=== PATIENT | female | born 1990 | race Caucasian/White ===

== ENCOUNTER 2021-07-26 11:17 | Outpatient (CLI) | payer OTHER, SELFPAY ==
[2021-07-26 12:31] LABS: SARS-CoV-2 Ag Positive (Negative)
== END 2021-07-26 11:18 | disposition home or self-care (01) ==
LOC: CHSLAB 11:20
PROVIDERS: PCP Family Medicine; Visit Provider Nurse Practitioner Psychiatric/Mental Health
DX: U07.1 COVID-19 (principal)
CPT/HCPCS: 87426; C9803

== ENCOUNTER 2024-01-05 14:07 | Emergency (ER) | payer OTHER, SELFPAY ==
--- NOTE | ~2024-01-05 | XR_ITS ---
EXAMINATION: XR chest 2V DATE: 01/05/2024 15:15 INDICATION: Cough. Chest pain. TECHNIQUE: Frontal and lateral views of the chest were obtained. COMPARISON: None. FINDINGS: There is no pneumonia, pleural effusion, or pneumothorax. The heart size is normal. There a re changes of anterior fusion procedure in cervical spine. IMPRESSION: 1. No acute cardiopulmonary disease. Reviewed, dictated and finalized at location A.
[2024-01-05 14:14] VITALS: BP 143/72; PULSE 97; RESP 16; TEMP 36.9; O2SAT 99
--- NOTE | 2024-01-05 14:42 | ED.URI ---
HPI - URI/Sore Throat General Chief Complaint: Upper Respiratory Infection <Madison Collins PA-C - Last Filed: 01/05/24 18:01> Stated Complaint: URI, 7 months preg, coughing <Madison Collins PA-C - Last Filed: 01/05/24 18:01> Time Seen by Provider: 01/05/24 14:32 <Madison Collins PA-C - Last Filed: 01/05/24 18:01> History of Present Illness HPI Narrative: 33-year-old female who is currently 7 months presents to the emergency department for bilateral rib pain and URI symptoms for 5 days. She is reporting cough, congestion, sore throat and headache. Patient was evaluated at her PCPs office yesterday and had a negative strep test. States she was diagnosed with a URI and prescribed amoxicillin. States she has been taking his medications, however presents today because she had a coughing fit last night and now is presenting with bilateral rib pain that only occurs when she coughs. Does not occur while at rest. She states she is concerned she broke a rib. She is very tearful and anxious appearing. She is reporting some shortness of breath she contributes to nasal congestion, denies chest pain. No hemoptysis or history of VTE. Denies fevers. States this has been uncomplicated. Her OBGYN is Dr. Kelly. <Madison Collins PA-C - Last Filed: 01/05/24 18:01> Related Data Allergies/Adverse Reactions: Allergies Allergy/AdvReac Type Severity Reaction Status Date / Time No Known Allergies Allergy Verified 01/05/24 14:27 <SARI Morrison Last Filed: 01/05/24 18:01> Review of Systems Review of Systems: CONSTITUTIONAL: Denies fever, chills, or sweats. EYES: Denies visual changes, redness, or discharge. ENT: Denies rhinorrhea, congestion, sore throat, or otalgia. CARDIOVASCULAR: Denies chest pain, palpitations, or edema. RESPIRATORY: See HPI GASTROINTESTINAL: Denies abdominal pain, nausea, vomiting, or diarrhea. GENITOURINARY: Denies dysuria or hematuria. SKIN: Denies rash or itching. MUSCULOSKELETAL: Denies back pain, joint pain, or myalgia. NEUROLOGIC: Denies headache, numbness, or weakness. PSYCHIATRIC: Denies anxiety or depression. <Madison Collins PA-C - Last Filed: 01/05/24 18:01> Exam Narrative: GENERAL: Well-appearing, well-nourished, and in no acute distress. HEAD: Normocephalic, atraumatic. EYES: PERRLA and EOMI. ENT: Nares clear, no rhinorrhea or epistaxis. Mucous membranes moist. NECK: Supple. CHEST: Clear to auscultation. No respiratory distress. Tenderness to bilateral anterior lateral inferior ribs without crepitus, step-offs or deformities. HEART: Regular rate and rhythm. No murmur heard. Normal peripheral pulses. ABDOMEN: Soft, nontender, nondistended, normal active bowel sounds. EXTREMITIES: Normal range of motion. No edema. Negative Homans bilaterally. SKIN: Warm, dry, no rash. NEURO: No focal deficits. Alert and oriented x3 PSYCH: Very anxious and tearful on exam <Madison Collins PA-C - Last Filed: 01/05/24 18:01> Course MAINTENANCE INSTRUCTOR/PA Physician Supervision I agree with midlevel documentation; I performed the medical decision making component of this evaluation. <Veronica Bynum MD - Last Filed: 01/05/24 17:45> Vital Signs Vital signs: Vital Signs Temperature 98.4 F 01/05/24 14:14 Pulse Rate 97 01/05/24 14:14 Respiratory Rate 16 01/05/24 14:14 Blood Pressure 143/72 H 01/05/24 14:14 Pulse Oximetry 99 01/05/24 14:14 Temperature 98.4 F 01/05/24 14:14 Pulse Rate 88 01/05/24 16:22 Respiratory Rate 18 01/05/24 16:22 Blood Pressure 123/74 01/05/24 16:22 Pulse Oximetry 98 01/05/24 16:22 <Madison Collins PA-C - Last Filed: 01/05/24 18:01> Vital Signs Temperature 98.4 F 01/05/24 14:14 Pulse Rate 97 01/05/24 14:14 Respiratory Rate 16 01/05/24 14:14 Blood Pressure 143/72 H 01/05/24 14:14 Pulse Oximetry 99 01/05/24 14:14 Temperature 98.4 F 01/05/24 1
[2024-01-05] MEDS: ACETAMINOPHEN 500 MG TABLET 1000 MG PO (15:27)
[2024-01-05 15:36] LABS: Basophils Percent Auto 0.2 % (0.2-1.2); Eosinophils Percent Auto 0.2 % (0-4.4); Hematocrit 37.9 % (37.0-47.0); Hemoglobin 12.4 g/dL (12.0-15.0); Immature Granulocyte Absolute 0.08 K/mm3 (0.00-0.031); Immature Granulocyte Percent A 0.8 % (0-0.5); Lymphocytes Percent Auto 8.4 % (18.3-44.2); Mean Corpuscular HGB Conc 32.7 g/dl (32-36); Mean Corpuscular Hemoglobin 30.9 pg (26-34); Mean Corpuscular Volume 94.5 fl (80-100); Mean Platelet Volume 10.4 fl (7.4-10.4); Monocytes Absolute Auto 0.8 K/mm3 (0.1-0.6); Monocytes Percent Auto 8.7 % (2.6-8.5); Neutrophils Absolute Auto 7.7 K/mm3 (1.3-6.7); Neutrophils Percent Auto 81.7 % (45.5-73.1); Platelet Count Result 228 k/mm3 (150-375); Red Blood Count 4.01 M/mm3 (4.2-5.4); Red Cell Distribution Width 14.3 % (11.5-14.5); White Blood Count 9.5 K/mm3 (4.5-10.0)
[2024-01-05 15:47] LABS: Alanine Aminotransferase 18 U/L (6-35); Albumin Level 3.9 g/dL (3.5-5.1); Alkaline Phosphatase 114 U/L (38-126); Anion Gap 7 mmol/L (4-12); Aspartate Amino Transferase 21 U/L (14-36); Bilirubin,Total 0.5 mg/dL (0.2-1.3); Blood Urea Nitrogen 8 mg/dL (7-17); Calcium 8.8 mg/dL (8.4-10.2); Carbon Dioxide 19 mmol/L (22-30); Chloride 108 mmol/L (98-107); Estimated CRCL calculation 162 ml/min; Estimated Glomerular Filt Rate > 60; Glucose 91 mg/dL (65-110); Magnesium 1.8 mg/dL (1.6-2.3); Potassium 3.6 mmol/L (3.4-5.0); Sodium 134 mmol/L (137-145)
[2024-01-05 16:10] LABS: Appearance Urine Clear (Clear); Bacteria Urine None Seen /hpf; Bilirubin Urine Negative (Negative); Blood Urine 1+ (Negative); Color Urine Yellow (Yellow); Glucose Urine UA Negative (Negative); Ketones Urine Negative (Negative); Leukocyte Esterase Ur 2+ LEU/UL (Negative); Nitrate Urine Negative (Negative); Non Pathogenic Casts 0-2; Protein Urine Negative (Negative); Squamous Epithelial Cell Urine Few /hpf (Few); Urobilinogen Urine 0.2 mg/dL (<2.0)
[2024-01-05 16:12] LABS: Influenza A QL RT-PCR Negative (Negative); Influenza B QL RT-PCR Negative (Negative); SARS-CoV-2 RNA PCR Negative (Negative)
[2024-01-05 16:12] LABS: Add Urine Microscopic? YES
[2024-01-05 16:22] VITALS: BP 123/74; PULSE 88; RESP 18; O2SAT 98
[2024-01-05] MEDS: CEPHALEXIN 500 MG CAPSULE PO (17:01)
== END 2024-01-05 17:05 | disposition home or self-care (01) ==
PROVIDERS: Emergency Provider Physician Assistant; PCP Family Medicine
DX: O99.519 Diseases of the respiratory system complicating pregnancy, unspecified trimester (principal); O23.10 Infections of bladder in pregnancy, unspecified trimester; N30.01 Acute cystitis with hematuria; O9A.219 Injury, poisoning and certain other consequences of external causes complicating pregnancy, unspecified trimester; S23.41XA Sprain of ribs, initial encounter; Z3A.00 Weeks of gestation of pregnancy not specified; Z20.822 Contact with and (suspected) exposure to COVID-19; X50.9XXA Other and unspecified overexertion or strenuous movements or postures, initial encounter
CPT/HCPCS: 36415; 71046; 80053; 81001; 83735; 85025; 87077; 87086; 87088; 87186; 87636; 99283; A9270

== ENCOUNTER 2024-02-10 10:01 | Observation (INO) | payer OTHER, SELFPAY ==
[2024-02-10] VITALS (21 sets, daily range): BP systolic 115–134; BP diastolic 53–72; PULSE 74–92; O2SAT 95–100; BMI 50.1
--- NOTE | 2024-02-10 10:12 | ECG_ITS ---
Test Date: 2024-02-10 10:39:10 Measurements Intervals [place] Rate: 85 P: 10 AL: 133 QRS: 40 QRSD: 81 T: 14 QT: 342 QTc: 407 Interpretive Statements SINUS RHYTHM No previous ECG available for comparison Electronically Signed On 02-10-2024 11:56:14 CDT by Heather Hector M.D.
[2024-02-10] MEDS: DEXTROSE 5%/LACTATED RINGERS 1,000 ML 999 ML IV CONT (10:57)
--- NOTE | 2024-02-10 11:10 | OBADM ---
This patient, Kenzie Chang, admitted to the OB room 116 at 1001 for observation after being seen in Dr. Bryant Hua's office where pt's BP was low . Patient/family oriented to hospital policies and general routines including ID bracelet, bed and alarms, visiting hours, pain management, procedures, bathroom and other care routines, personal items, smoking policy, room service/diet, and visiting hours. Patient/Family are encouraged to report perceived risks to care and to ask questions if they do not understand what they are told or what they should do.
[2024-02-10 11:11] LABS: Basophils Percent Auto 0.1 % (0.2-1.2); Eosinophils Percent Auto 0.1 % (0-4.4); Hematocrit 35.2 % (37.0-47.0); Hemoglobin 11.9 g/dL (12.0-15.0); Immature Granulocyte Absolute 0.06 K/mm3 (0.00-0.031); Immature Granulocyte Percent A 0.6 % (0-0.5); Lymphocytes Absolute Auto 1.14 K/mm3 (0.9-3.2); Lymphocytes Percent Auto 11.3 % (18.3-44.2); Mean Corpuscular HGB Conc 33.8 g/dl (32-36); Mean Corpuscular Hemoglobin 30.8 pg (26-34); Mean Corpuscular Volume 91.2 fl (80-100); Mean Platelet Volume 10.5 fl (7.4-10.4); Monocytes Absolute Auto 0.7 K/mm3 (0.1-0.6); Monocytes Percent Auto 6.7 % (2.6-8.5); Neutrophils Absolute Auto 8.2 K/mm3 (1.3-6.7); Neutrophils Percent Auto 81.2 % (45.5-73.1); Platelet Count Result 227 k/mm3 (150-375); Red Blood Count 3.86 M/mm3 (4.2-5.4); Red Cell Distribution Width 14.2 % (11.5-14.5); White Blood Count 10.1 K/mm3 (4.5-10.0)
[2024-02-10 11:23] LABS: Alanine Aminotransferase 13 U/L (6-35); Albumin Level 3.6 g/dL (3.5-5.1); Alkaline Phosphatase 128 U/L (38-126); Anion Gap 6 mmol/L (4-12); Aspartate Amino Transferase 15 U/L (14-36); Bilirubin,Total 0.4 mg/dL (0.2-1.3); Blood Urea Nitrogen 9 mg/dL (7-17); Calcium 9.1 mg/dL (8.4-10.2); Carbon Dioxide 20 mmol/L (22-30); Chloride 110 mmol/L (98-107); Estimated CRCL calculation 207 ml/min; Estimated Glomerular Filt Rate > 60; Glucose 83 mg/dL (65-110); Sodium 136 mmol/L (137-145)
--- NOTE | 2024-02-10 11:31 | PC.NURSE ---
Dr. Bryant Hua returned page and informed of reactive NST, BP's, maternal pulse 80's to low 90's and regular, pt no longer feeling the palpitations or lightheadedness, EKG was normal, O2 sats are 96-98%, CBC and CMP results. Pt has had 1/2 of the bag of IV fluids. Order for discharge received.
--- NOTE | 2024-02-11 16:29 | P.PNOB_ITS ---
OB - Triage/Final Diagnosis Visit Information Date of evaluation: 02/11/24 Reason for evaluation: threatened labor Comments/Additional reasons for admission: I have assessed the risk for this patient, Kenzie Hossein Chang, and determined that she would benefit from observation care. Evaluation Laboratory results: Laboratory Tests 02/10/24 10:51 WBC 10.1 H RBC 3.86 L Hgb 11.9 L Hct 35.2 L MCV 91.2 MCH 30.8 MCHC 33.8 RDW 14.2 Plt Count 227 MPV 10.5 H Immature Gran % (Auto) 0.6 H Neut % (Auto) 81.2 H Lymph % (Auto) 11.3 L [place] % (Auto) 6.7 Eos % (Auto) 0.1 Baso % (Auto) 0.1 L Lymph # (Auto) 1.14 [place] # (Auto) 0.7 H Eos # (Auto) 0.0 Baso # (Auto) 0.0 Abs Immat Gran (auto) 0.06 H Absolute Neuts (auto) 8.2 H Absolute Nucleated RBC 0.000 Nucleated RBC % 0.0 Sodium 136 L Potassium 4.0 Chloride 110 H Carbon Dioxide 20 L Anion Gap 6 BUN 9 Creatinine 0.50 L Estim Creat Clear Calc 207 Estimated GFR > 60 Glucose 83 Calcium 9.1 Total Bilirubin 0.4 AST 15 ALT 13 Alkaline Phosphatase 128 H Total Protein 7.0 Albumin 3.6
== END 2024-02-10 12:14 | disposition home or self-care (01) ==
PROVIDERS: Admitting Provider Obstetrics & Gynecology; PCP Family Medicine; Visit Provider Obstetrics & Gynecology
DX: O47.1 False labor at or after 37 completed weeks of gestation (principal); Z3A.37 37 weeks gestation of pregnancy
CPT/HCPCS: 36415; 59025; 80053; 85025; 93005; 96360; G0378; G0379; J7121

== ENCOUNTER 2024-02-16 15:03 | Observation (INO) | payer OTHER, SELFPAY ==
[2024-02-16] VITALS (16 sets, daily range): BP systolic 126–134; BP diastolic 63–68; PULSE 78–96; O2SAT 96–99; BMI 48.6
--- NOTE | 2024-02-16 15:23 | OBADM ---
This patient, Kenzie Chang, admitted to the OB room OB Post 117 for observation. Patient/family oriented to hospital policies and general routines including ID bracelet, bed and alarms, visiting hours, pain management, procedures, bathroom and other care routines, personal items, smoking policy, room service/diet, and visiting hours. Patient/Family are encouraged to report perceived risks to care and to ask questions if they do not understand what they are told or what they should do.
[2024-02-16 15:39] LABS: Appearance Urine Cloudy (Clear); Bacteria Urine 3+ /hpf; Bilirubin Urine Negative (Negative); Blood Urine 1+ (Negative); Color Urine Yellow (Yellow); Glucose Urine UA Negative (Negative); Ketones Urine Negative (Negative); Leukocyte Esterase Ur 2+ LEU/UL (Negative); Nitrate Urine Negative (Negative); Non Pathogenic Casts 0-2; Protein Urine Negative (Negative); Specific Grav Ur 1.024 (1.001-1.035); Squamous Epithelial Cell Urine Few /hpf (Few); Urobilinogen Urine 0.2 mg/dL (<2.0); WBC Urine 21-50 /hpf (0-3); pH Urine 6.5 (5.0-9.0)
[2024-02-16 15:48] LABS: Add Urine Microscopic? YES
--- NOTE | 2024-02-16 16:11 | PM.OBTRLD ---
OB - Triage/Final Diagnosis Visit Information Date of evaluation: 02/16/24 Reason for evaluation: decreased movement Comments/Additional reasons for admission: I have assessed the risk for this patient, Kenzie Chang, and determined that she would benefit from observation care. Evaluation Laboratory results: Laboratory Tests 02/16/24 15:15 Urine Color Yellow Urine Appearance Cloudy H Urine pH 6.5 Ur Specific [place] 1.024 Urine Protein Negative Urine Glucose (UA) Negative Urine Ketones Negative Ur Blood (Man) 1+ H Urine Nitrate Negative Urine Bilirubin Negative Urine Urobilinogen 0.2 Leukocyte Esterase Rfl 2+ H Urine RBC 6-10 H Urine WBC 21-50 H Ur Squamous Epith Cells Few Urine Bacteria 3+ H Urine Casts 0-2 Vital signs: Vital Signs - 24 hr 02/16/24 15:22 02/16/24 15:19 02/16/24 15:24 Pulse Rate Blood Pressure Pulse Oximetry 96 99 Oxygen Delivery Room Air 02/16/24 15:29 02/16/24 15:34 02/16/24 15:39 Pulse Rate Blood Pressure Pulse Oximetry 98 98 99 Oxygen Delivery 02/16/24 15:40 02/16/24 15:44 02/16/24 15:46 Pulse Rate 83 82 Blood Pressure 133/64 126/63 Pulse Oximetry 99 Oxygen Delivery 02/16/24 15:49 02/16/24 15:54 02/16/24 15:59 Pulse Rate Blood Pressure Pulse Oximetry 99 99 98 Oxygen Delivery 02/16/24 16:01 02/16/24 16:04 02/16/24 16:09 Pulse Rate 85 Blood Pressure 134/68 Pulse Oximetry 98 97 Oxygen Delivery
== END 2024-02-16 16:20 ==
PROVIDERS: Admitting Provider Obstetrics & Gynecology; PCP Family Medicine; Visit Provider Obstetrics & Gynecology
DX: O36.8130 Decreased fetal movements, third trimester, not applicable or unspecified (principal); Z3A.38 38 weeks gestation of pregnancy
CPT/HCPCS: 59025; 81001; 87086; 87088; G0378; G0379

== ENCOUNTER 2024-02-20 09:09 | Outpatient (CLI) | payer OTHER, SELFPAY ==
[2024-02-20 09:40] LABS: Hematocrit 37.6 % (37.0-47.0); Hemoglobin 12.4 g/dL (12.0-15.0); Mean Corpuscular Hemoglobin 30.7 pg (26-34); Mean Corpuscular Volume 93.1 fl (80-100); Mean Platelet Volume 10.5 fl (7.4-10.4); Platelet Count Result 205 k/mm3 (150-375); Red Blood Count 4.04 M/mm3 (4.2-5.4); Red Cell Distribution Width 14.4 % (11.5-14.5); White Blood Count 9.9 K/mm3 (4.5-10.0)
[2024-02-22 19:09] LABS: Rapid Plasma Reagin Non-Reactive (NonReactive)
== END 2024-02-20 09:10 | disposition home or self-care (01) ==
PROVIDERS: PCP Family Medicine; Visit Provider Obstetrics & Gynecology
DX: Z01.818 Encounter for other preprocedural examination (principal)
CPT/HCPCS: 36415; 85027; 86592; 86850; 86900; 86901

== ENCOUNTER 2024-02-22 09:48 | Inpatient (IN) | payer OTHER, SELFPAY ==
--- NOTE | 2024-02-16 12:48 | P.HP_ITS ---
H&P: HPI History of Present Illness Date/Time: 02/16/24 12:48 Chief Complaint: term with previous section Narrative: 33 year female admitted at 39 weeks gestation repeat section. She has an unfavorable cervix previous section failure to progress risks and benefits repeat full COUNTS INCLUDE 234 BEDS AT THE [facility] Family History Family History Father Diabetes mellitus Mother Diabetes mellitus CHF (congestive heart failure) Grandparent Hypertension Social History Social History Substance use: never Spiritual care concerns: No Meds Home Medications and Allergies Home Medications Medication Instructions Recorded Confirmed Type prenat.vits,julio,[id number] 1 tablet PO HS 02/01/24 02/10/24 History calcium carbonate (Tums) 600 mg PO HS 02/10/24 02/10/24 History Allergies Allergy/AdvReac Type Severity Reaction Status Date / Time No Known Allergies Allergy Verified 01/05/24 14:27 Exam Const: General: cooperative, healthy appearing and comfortable Nutritional Appearance: obese Orientation/consciousness: oriented to person, oriented to place and oriented to time HENMT: Head: normal to inspection Resp: Effort & Inspection: normal respiratory effort Cardio: Rate: regular rate Rhythm: regular rhythm Heart sounds: S1 normal heart sound present and S2 normal heart sound present GI: Inspection: normal to inspection and obesity Assessment and Plan Assessment and plan (1) Term : Code(s): Z34.90 - Encounter for supervision of normal , unspecified, unspecified trimester Status: Acute (2) Previous section: Code(s): Z98.891 - History of uterine scar from previous surgery Status: Acute Assessment and Plan: proceed with repeat low-transverse section
[2024-02-22] VITALS (62 sets, daily range): BP systolic 88–139; BP diastolic 40–66; PULSE 49–83; RESP 16–20; TEMP 36.3–36.9; O2SAT 97–100; BMI 50.3
--- NOTE | 2024-02-22 06:36 | WPDHPUPDATE1 ---
History and Physical Update Update Date/Time: 02/22/24 06:36 History and Physical has been reviewed, including an updated exam of the patient. There are NO changes in the patient's condition. Risks, benefits, and alternatives have been discussed and questions answered. Patient agrees to proceed with procedure.
[2024-02-22] MEDS: ACETAMINOPHEN 500 MG TABLET 1000 MG PO (10:09)
[2024-02-22] MEDS: LACTATED RINGERS 1,000 ML 999 ML IV CONT ×2 (10:25→11:10)
--- NOTE | 2024-02-22 10:40 | LDADM ---
This patient, Kenzie Chang, was admitted to Labor/Delivery/Recovery 120 on 02/22/24 at 09:48. Plans for labor, pain management and were discussed with patient. Patient/family oriented to hospital policies and general routines including ID bracelet, bed and alarms, visiting hours, pain management, procedures, bathroom and other care routines, personal items, smoking policy, room service/diet and guest tray routines, security routines, and visiting hours. Patient/Family are encouraged to report perceived risks to care and to ask questions if they do not understand what they are told or what they should do. See OBIX for further documentation.
[2024-02-22] MEDS: ONDANSETRON INJ 4 MG/2 ML VIAL IV PUSH ×2 (10:55→16:28)
[2024-02-22] MEDS: FAMOTIDINE 20 MG/2 ML VIAL IV PUSH (10:56)
[2024-02-22 11:16] LABS: HIV 1/2 Ab P24 Ag Result Negative (Negative)
[2024-02-22] MEDS: ceFAZolin 3 GM/D5W 100 ML 100 ML IVPB (11:25)
--- NOTE | 2024-02-22 12:10 | W.PM.OBCSD ---
OB - Delivery Note Procedure Delivery date: 02/22/24 Pre-op diagnosis: Other (Previous section) Post-op Diagnosis: Same Induction method: None Delivery monitor: External FHT Procedure Performed: Repeat Surgeon: Hubert Hua MD Anesthesia type: Spinal Description of Procedure/Findings: the patient was prepped draped in the sterile fashion placed in the supine position. Under excellent spinal anesthetic the abdomen was entered in Pfannenstiel fashion progressive layers of fascia. Fascia incised midline carried in upward outward fashion bilaterally. Underlying muscles sharply dissected. Parietal peritoneum [place] by Roxy clamps and by sharp 2nd dissection. This was carried superiorly and inferiorly to the dome of the bladder. Bladder blade was placed and a bladder flap formed. Bladder blade returned. A low transverse incision made in the head delivered in the DONNA position. Anterior posterior shoulder delivered spontaneously. Cord clamped x2 and cut. Infant passed off the table with an excellent cry. Placenta delivered intact manually. Uterus delivered on the abdomen wrapped in a moist towel. After inspecting the uterine lining to be clear of debris, the uterus was closed in continuous running locking 0 Vicryl from lateral edge to lateral edge. This was followed by 2nd imbricating running locking 0 Vicryl from lateral edge to lateral edge. Hemostasis was assured. The uterus returned to the abdomen after inspecting the ovaries and tubes to be within normal limits. The uterine incision inspected 1 last time. The noted be hemostatic. The laps removed and accounted for. The fascia closed with continuous running 0 Vicryl from lateral edge to lateral edge. Irrigation undertaken to clear and the subcutaneous layer closed with 4-0 Monocryl and glue. QBL was 220. All sponge, needle, instrument counts were correct. There were no immediate complications noted mom and baby doing fine at the time of this dictation Estimated Blood Loss: 220 Drains: No Packing: No Pathology: None sent Complications: No immediate complications Condition: Stable Disposition: PACU [place] Baby Date of : 02/22/24 Time of : 11:51 Weeks of gestation at delivery: 39 gender: Male Weight (pounds): 9 Weight (ounces): 2 presentation: vertex position: Right Occiput Anterior Placenta delivery description: Manual Removal Cord Vessel Description: 3 Vessels score one minute: 8 score five minutes: 9
--- NOTE | 2024-02-22 12:13 | P.DS_ITS ---
DS: Admitting Diagnosis Discharge Date 02/24/2024 Admitting Diagnosis term /previous section DS: Discharge Diagnosis Discharge Diagnosis (1) Previous section: Code(s): Z98.891 - History of uterine scar from previous surgery Status: Acute (2) Term : Code(s): Z34.90 - Encounter for supervision of normal , unspecified, unspecified trimester Status: Acute DS: Summary Hospital Course Reason for hospitalization: patient was admitted for repeat section 02/22/2024. Hospital Course: The patient's hospital course unremarkable. She remained afebrile. She was up, voiding without difficulty, eating regular diet, ambulating, and generally without complaints. Time Spent with Patient Time attestation: Total time spent providing and/or coordinating discharge services: Exam Const: General: cooperative, healthy appearing and comfortable Orientation/consciousness: oriented to person, oriented to place and oriented to time HENMT: Head: normal to inspection Resp: Effort & Inspection: normal respiratory effort Cardio: Rate: regular rate Rhythm: regular rhythm Heart sounds: S1 normal heart sound present and S2 normal heart sound present GI: Inspection: normal to inspection and incision ( Wounds clean dry and intact) DS: Data Data Completed and Pending Labs on day of discharge: Labs from last 24 hours 02/22/24 10:18 HIV 1&2 Ab/P24 Ag 4thGn Negative Discharge Plan Discharge Attending physician on discharge: Hubert Villanueva Discharging Clinician: Hubert Villanueva Patient Disposition: Home, Self-Care Activity: may shower, no straining, may drive after 2 weeks and pelvic rest Diet: heart healthy Wound Care Instructions: follow printed instructions Patient Instructions: Antibiotic Form Stand Alone Forms: General Discharge Information Follow-up/Referrals: Hubert Villanueva MD [Physician] - Discharge Medications: New hydrocodone-acetaminophen 5-325 mg tablet 1 tablet PO Q4H PRN (Reason: pain) Qty: 30 0RF Continued prenat.vits,julio,brd-[id number]-tknws Tablet 1 tablet PO HS cephalexin 500 mg Capsule 500 mg PO Q12H Qty: 10 0RF Tums 300 mg (750 mg) Tablet,Chewable 600 mg PO HS Date of admission: 02/22/24 09:48 Primary Care Provider: YassineAlbert Admitting Provider: Dalla [place],Hubert J. Attending physician on admission: Hubert Villanueva Condition: Stable
[2024-02-22] MEDS: OXYTOCIN 30 UNITS/NS 500 ML 30 UNITS/500 ML BAG 125 UNITS IV CONT (12:25)
[2024-02-22] MEDS: LIDOCAINE 5% PATCH 1 PATCH TRANSDERM (12:56)
--- NOTE | 2024-02-22 14:35 | PC.NURSE ---
Patient transferred to post room #282 via stretcher. Support person present. Oriented to unit, room, information board, rooming in, admission packet and security measures. Patient verbalizes understanding.
[2024-02-22] MEDS: DEXTROSE 5%/0.45% SOD CHL 1,000 ML 125 ML IV CONT (16:26)
[2024-02-22] MEDS: KETOROLAC 15 MG/ML VIAL (*BKC) IV PUSH ×2 (16:27→22:30)
[2024-02-22] MEDS: ACETAMINOPHEN 325 MG TABLET 650 MG PO ×2 (16:28→22:30)
[2024-02-22] MEDS: SIMETHICONE 80 MG TAB.CHEW PO (16:28)
[2024-02-23 04:15] VITALS: BP 102/51; PULSE 81; RESP 18; TEMP 36.4; O2SAT 99
[2024-02-23] MEDS: ACETAMINOPHEN 325 MG TABLET 650 MG PO ×4 (04:16→22:40)
[2024-02-23] MEDS: KETOROLAC 15 MG/ML VIAL (*BKC) IV PUSH ×2 (04:17→10:21)
[2024-02-23 04:50] LABS: Eosinophils Percent Auto 0.4 % (0-4.4); Hematocrit 32.3 % (37.0-47.0); Hemoglobin 10.6 g/dL (12.0-15.0); Immature Granulocyte Absolute 0.09 K/mm3 (0.00-0.031); Immature Granulocyte Percent A 0.8 % (0-0.5); Lymphocytes Absolute Auto 1.39 K/mm3 (0.9-3.2); Lymphocytes Percent Auto 12.6 % (18.3-44.2); Mean Corpuscular HGB Conc 32.8 g/dl (32-36); Mean Corpuscular Hemoglobin 31.3 pg (26-34); Mean Corpuscular Volume 95.3 fl (80-100); Mean Platelet Volume 10.8 fl (7.4-10.4); Monocytes Absolute Auto 0.6 K/mm3 (0.1-0.6); Monocytes Percent Auto 5.2 % (2.6-8.5); Platelet Count Result 180 k/mm3 (150-375); Red Blood Count 3.39 M/mm3 (4.2-5.4); Red Cell Distribution Width 14.5 % (11.5-14.5); White Blood Count 11.1 K/mm3 (4.5-10.0)
--- NOTE | 2024-02-23 07:13 | P.PNOB_ITS ---
OB - PN: Subj Subjective Date/time seen: 02/23/24 07:13 Patient comments: no complaints and pain well controlled baby status: doing well and nursing well OB - PN: Obj Data Labs 02/23/24 04:04 Labs: Laboratory Results - last 24 hr 02/22/24 02/23/24 10:18 04:04 WBC 11.1 H RBC 3.39 L Hgb 10.6 L Hct 32.3 L MCV 95.3 MCH 31.3 MCHC 32.8 RDW 14.5 Plt Count 180 MPV 10.8 H Immature Gran % (Auto) 0.8 H Neut % (Auto) 81.0 H Lymph % (Auto) 12.6 L [place] % (Auto) 5.2 Eos % (Auto) 0.4 Baso % (Auto) 0.0 L Lymph # (Auto) 1.39 [place] # (Auto) 0.6 Eos # (Auto) 0.0 Baso # (Auto) 0.0 Abs Immat Gran (auto) 0.09 H Absolute Neuts (auto) 9.0 H Absolute Nucleated RBC 0.000 Nucleated RBC % 0.0 HIV 1&2 Ab/P24 Ag 4thGn Negative OB - PN A/P Plan day: 1 Plan: routine care Comments: will circ baby when peds sees baby Time Spent With Patient Time: Total time spent is greater than 50% in coordination of care (as documented) at patient's floor/unit and/or counseling patient: Time with patient: less than 15 minutes Exam Const: General: cooperative, healthy appearing and comfortable Orientation/consciousness: oriented to person, oriented to place and oriented to time Resp: Effort & Inspection: normal respiratory effort Cardio: Rate: regular rate Rhythm: regular rhythm Heart sounds: S1 normal heart sound present and S2 normal heart sound present GI: Inspection: normal to inspection and incision (cdi)
[2024-02-23 08:15] VITALS: BP 111/58; PULSE 78; RESP 20; TEMP 36.4; O2SAT 98
--- NOTE | 2024-02-23 09:31 | WPDANLDPN2 ---
Anes-Prog Note L&D Date/Time: 02/23/24 09:31 Comfortable throughout: section Neuraxial method: spinal Epidural/Spinal procedure site: clean & non-tender Neuro status: Neuro function grossly intact. Cardiovascular status: normal Respiratory status: normal Airway patency: baseline Mental status: baseline Post-Op hydration status: normal Vital Signs: Last Vital Signs Temp 36.4 C L 02/23/24 04:15 Pulse 81 02/23/24 04:15 Resp 18 02/23/24 04:15 BP 102/51 L 02/23/24 04:15 Pulse Ox 99 02/23/24 04:15 O2 Del Method Room Air 02/23/24 04:15 Pain score (VAS): 2/10 I/O: Intake & Output 02/22/24 02/23/24 02/23/24 23:59 07:59 15:59 Intake Total 500 1600 Output Total 100 350 Balance 400 1250 Post-procedural complaints: none Patient feedback: Patient satisfied with anesthetic care.
--- NOTE | 2024-02-23 09:31 | WPDANLDNPN2 ---
Anes-Prog Note L&D-Neuraxial Date/Time: 02/23/24 09:31 Neuraxial medications: intrathecal PF morphine Opiod-related complaints: pruritis mild, no treatment Patient feedback: Patient satisfied with post-operative pain management.
[2024-02-23] MEDS: SIMETHICONE 80 MG TAB.CHEW PO ×2 (10:19→15:15)
[2024-02-23] MEDS: DOCUSATE SODIUM 100 MG CAPSULE PO ×2 (10:20→16:16)
[2024-02-23] MEDS: MULTIVIT/MIN/PREN/FOL AC/IRON TABLET 1 TAB PO (10:20)
[2024-02-23] MEDS: LIDOCAINE 5% PATCH 1 PATCH TRANSDERM (15:15)
[2024-02-23] MEDS: IBUPROFEN 600 MG TABLET PO ×2 (16:16→22:40)
[2024-02-23 20:10] VITALS: BP 130/83; PULSE 79; RESP 18; TEMP 36.6
[2024-02-24] MEDS: ACETAMINOPHEN 325 MG TABLET 650 MG PO ×2 (04:27→11:53)
[2024-02-24] MEDS: IBUPROFEN 600 MG TABLET PO ×2 (04:27→11:53)
--- NOTE | 2024-02-24 06:51 | PM.OBPNVD ---
OB - PN: Subj Subjective Date/time seen: 02/24/24 06:51 Patient comments: no complaints and pain well controlled baby status: doing well OB - PN: Obj Data Labs 02/23/24 04:04 OB - PN A/P Plan day: 2 Plan: routine care, discharge home and follow up 6 weeks (4 weeks) Time Spent With Patient Time: Total time spent is greater than 50% in coordination of care (as documented) at patient's floor/unit and/or counseling patient: Time with patient: less than 15 minutes Exam Const: General: cooperative, healthy appearing and comfortable Orientation/consciousness: oriented to person, oriented to place and oriented to time HENMT: Head: normal to inspection Resp: Effort & Inspection: normal respiratory effort Cardio: Rate: regular rate Rhythm: regular rhythm Heart sounds: S1 normal heart sound present and S2 normal heart sound present GI: Inspection: normal to inspection and incision (wound cdi)
[2024-02-24] MEDS: MULTIVIT/MIN/PREN/FOL AC/IRON TABLET 1 TAB PO (07:07)
[2024-02-24] MEDS: SIMETHICONE 80 MG TAB.CHEW PO ×2 (07:07→11:53)
[2024-02-24] MEDS: DOCUSATE SODIUM 100 MG CAPSULE PO (07:07)
[2024-02-24 08:40] VITALS: BP 135/66; PULSE 82; RESP 18; TEMP 36.4; O2SAT 99
[2024-02-25 08:26] VITALS: BP 140/72; PULSE 76; RESP 18; TEMP 36.7; O2SAT 98
== END 2024-02-24 12:45 | disposition home or self-care (01) | DRG 540 ==
LOC: ANHLDR 09:53 → ANHOB2 14:27
PROVIDERS: Admitting Provider Obstetrics & Gynecology; PCP Family Medicine; Visit Provider Obstetrics & Gynecology
PROC: 10D00Z1 Extraction of Products of Conception, Low, Open Approach (ICD-10-PCS; CPT 59514; principal; 2024-02-22 12:00)
DX: O34.211 Maternal care for low transverse scar from previous cesarean delivery (principal); Z37.0 Single live birth; Z3A.39 39 weeks gestation of pregnancy
CPT/HCPCS: 36415; 85025; 85027; 86592; 86703; 86850; 86900; 86901; A9270; G0432; J0690; J1885; J2274; J2371; J2405; J2590; J7120

== ENCOUNTER 2024-03-01 10:48 | Emergency (ER) | payer OTHER, SELFPAY ==
[2024-03-01 10:49] VITALS: BP 138/68; PULSE 60; RESP 20; TEMP 36.6; O2SAT 100
--- NOTE | 2024-03-01 11:33 | ED.WOUNDLAC ---
HPI - Wound/Laceration General Chief Complaint: Wound/Laceration Stated Complaint: C section incision drainage Time Seen by Provider: 03/01/24 11:16 Source: patient Mode of arrival: ambulatory Limitations: no limitations History of Present Illness HPI narrative: This is a 33-year-old female that presents to the emergency department for problems with her . Reports she had a 8 days ago. Today she believes an area may have opened up. She is having a lot of drainage from the area. Denies fevers or redness. Related Data Home Medications Medication Instructions Recorded Confirmed prenat.vits,julio,txo-wxmw-rmfsx 1 tablet PO HS 02/01/24 02/10/24 Allergies Allergy/AdvReac Type Severity Reaction Status Date / Time No Known Allergies Allergy Verified 03/01/24 11:20 Review of Systems Review of Systems: CONSTITUTIONAL: Denies fever SKIN: Reports drainage All systems reviewed & are unremarkable except as noted in HPI and below PMFSH Past Medical History Medical History (Updated 03/01/24 @ 12:37 by Shahram Yousif MD) No active medical problems Surgical History Surgical History (Updated 03/01/24 @ 12:35 by Shahram Yousif MD) Previous section Family History Family History Father Diabetes mellitus Mother Diabetes mellitus CHF (congestive heart failure) Grandparent Hypertension Social History Social History Smoking status: Former smoker Tobacco type: cigarettes Second hand tobacco smoke exposure: Yes (grandparent smokes) Substance use: never Do You Feel Safe in your Home?: Yes Lack of Transportation: No Lack of Food: Never True Current Housing: I Have Housing Concerned About Future Housing: No Difficulty Paying Gas/Electric Bills: No Difficulty Paying for Meds: No Currently Unemployed: No Education: Bachelor's Degree Difficulty w/ Childcare or Family Care: No Spiritual care concerns: No Exam Narrative: GENERAL: Well-appearing, well-nourished, and in no acute distress. HEAD: Normocephalic, atraumatic. EYES: EOMI. CHEST: No respiratory distress. HEART: Regular rate ABDOMEN: Soft, nontender, nondistended. Left of the c section scar is not overtly open, but is draining continuous serous drainage. No erythema, edema or abnormal drainage EXTREMITIES: Normal range of motion. No edema. SKIN: Warm, dry, no rash. NEURO: No focal deficits. Alert and oriented x3. PSYCH: Normal mood and affect Course Consultations Consultation #1: Dr. Yousif is coming to the ER to evaluate patient Date: 03/01/24 Time: 11:47 Vital Signs Vital signs: Vital Signs Temperature 97.9 F 03/01/24 10:49 Pulse Rate 60 03/01/24 10:49 Respiratory Rate 20 03/01/24 10:49 Blood Pressure 138/68 03/01/24 10:49 Pulse Oximetry 100 03/01/24 10:49 Oxygen Delivery Room Air 03/01/24 10:49 Temperature 97.9 F 03/01/24 10:49 Pulse Rate 60 03/01/24 10:49 Respiratory Rate 20 03/01/24 10:49 Blood Pressure 138/68 03/01/24 10:49 Pulse Oximetry 100 03/01/24 10:49 Oxygen Delivery Room Air 03/01/24 10:49 MDM - Wound/Laceration MDM Narrative Medical decision making narrative: Patient presents to the emergency department for drainage from her scar. There is no erythema or abnormal drainage. Patient draining serous fluid from a small area on the left side of her scar. Dr. Yousif came down to evaluate patient. Probed/drained the area. Likely a small seroma. Patient instructed on further wound care. Will be started on prophylactic antibiotics. She is to follow up with her OB next week. She was given warnings to return to the ER Differential Diagnosis Differential diagnosis: Likely other (seroma, wound dehiscence) Critical Care Time Critical Care Time Critical Care Time: No Discharge Plan Disc
--- NOTE | 2024-03-01 12:33 | P.HP_ITS ---
H&P: HPI History of Present Illness Date/Time: 03/01/24 12:33 Chief Complaint: Drainage from incision Narrative: 33 y/o female POD#8 after , now with copious drainage from the left edge. No fever. No pain. Vaginal bleeding tapering. Bottle feeding. Mood is good. [facility] Past Medical History Medical History (Updated 03/01/24 @ 12:37 by Shahram Yousif MD) No active medical problems Surgical History Surgical History (Updated 03/01/24 @ 12:35 by Shahram Yousif MD) Previous section Family History Family History Father Diabetes mellitus Mother Diabetes mellitus CHF (congestive heart failure) Grandparent Hypertension Social History Social History Smoking status: Former smoker Tobacco type: cigarettes Second hand tobacco smoke exposure: Yes (grandparent smokes) Substance use: never Do You Feel Safe in your Home?: Yes Lack of Transportation: No Lack of Food: Never True Current Housing: I Have Housing Concerned About Future Housing: No Difficulty Paying Gas/Electric Bills: No Difficulty Paying for Meds: No Currently Unemployed: No Education: Bachelor's Degree Difficulty w/ Childcare or Family Care: No Spiritual care concerns: No Meds Home Medications and Allergies Home Medications Medication Instructions Recorded Confirmed Type prenat.vits,julio,fye-flsz-zmqaw 1 tablet PO HS 02/01/24 02/10/24 History hydrocodone 5 mg-acetaminophen 325 1 tablet PO Q4H PRN pain #30 tabs 02/22/24 Rx mg tablet cephalexin 500 mg capsule 500 mg PO Q6H 1 week #28 caps 03/01/24 Rx Allergies Allergy/AdvReac Type Severity Reaction Status Date / Time No Known Allergies Allergy Verified 03/01/24 11:20 Vital Signs Vital Signs - 24 hr 03/01/24 10:49 Temperature 36.6 C Pulse Rate 60 Respiratory Rate 20 Blood Pressure 138/68 Pulse Oximetry 100 Oxygen Delivery Room Air Exam GI: Other: ABD soft, nontender. Fundus firm and nontender, below umbilicus. Incision with a 6 mm defect on the left edge. This was probed with a sterile cotton tipped applicator. Fascia is intact. Copious serous drainage. Incision without surrounding erythema or warmth. Assessment and Plan Assessment and plan (1) Postoperative seroma: Status: Acute Assessment and Plan: A: POD#8 with a postoperative seroma, draining. P: Cover empirically with Keflex. Keep dressed and follow up in the office in a week.
== END 2024-03-01 13:15 | disposition home or self-care (01) ==
PROVIDERS: Emergency Provider Physician Assistant; PCP Family Medicine
DX: O90.2 Hematoma of obstetric wound (principal)
CPT/HCPCS: 99283

== ENCOUNTER 2024-04-15 19:43 | Emergency (ER) | payer OTHER, SELFPAY ==
--- NOTE | ~2024-04-15 | CT_ITS ---
EXAMINATION: CT abdomen pelvis w con DATE: 04/15/2024 21:48 INDICATION: Lower abdominal pain. TECHNIQUE: Computed tomography (CT) of the abdomen and pelvis was performed with 100 mL Omnipaque 350 intravenous contrast. Automated exposure control and iterative reconstruction technique were employe d. The dose-length product was 1672.27 mGy-cm. COMPARISON: None. FINDINGS: The visualized portions of lung bases demonstrate mild atelectasis. No pleural effusion. Th e heart size is normal. No pericardial effusion. The liver, gallbladder, spleen, pancreas, adrenal gl ands, and kidneys are normal. There is an infraumbilical ventral hernia containing nonobstructed smal l bowel. The appendix is normal. There are no pathologically enlarged lymph nodes. There is no free i ntraperitoneal fluid. There is mild thoracic and lumbar spondylosis. IMPRESSION: 1. Infraumbilical ventral hernia containing nonobstructed small bowel. Reviewed, dictated and finalized at location A.
[2024-04-15 19:46] VITALS: BP 101/74; PULSE 84; RESP 15; TEMP 36.6; O2SAT 98
--- NOTE | 2024-04-15 19:55 | ED.ABDPAIN ---
HPI - Abdominal Pain General Chief Complaint: Abdominal Pain <Alexander Hull MD - Last Filed: 04/15/24 21:37> Stated Complaint: abd pain after <Alexander Hull MD - Last Filed: 04/15/24 21:37> Time Seen by Provider: 04/15/24 19:47 <Alexander Hull MD - Last Filed: 04/15/24 21:37> Source: patient <Alexander Hull MD - Last Filed: 04/15/24 21:37> Mode of arrival: ambulatory <Alexander Hull MD - Last Filed: 04/15/24 21:37> Limitations: no limitations <Alexander Hull MD - Last Filed: 04/15/24 21:37> History of Present Illness HPI narrative: 33-year-old otherwise healthy status post 7 weeks ago here with the complaints of lower abdominal pain which has been ongoing for past few days. Patient states that she saw her OBGYN 3 days ago and is scheduled for outpatient ultrasound however was she was having bad this evening started having severe lower abdominal pain. No history of fever or chills. Denies any vaginal bleeding or discharge she states that she felt a lump at the incisional site on the left . <Alexander Hull MD - Last Filed: 04/15/24 21:37> Related Data Home Medications: Home Medications Medication Instructions Recorded Confirmed prenat.vits,julio,pyg-ehix-noppn 1 tablet PO HS 02/01/24 02/10/24 <Alexander Hull MD - Last Filed: 04/15/24 21:37> Allergies/Adverse Reactions: Allergies Allergy/AdvReac Type Severity Reaction Status Date / Time No Known Allergies Allergy Verified 04/15/24 19:55 <Alexander Hull MD - Last Filed: 04/15/24 21:37> Review of Systems Review of Systems: All systems reviewed & are unremarkable except as noted in HPI and below <Alexander Hull MD - Last Filed: 04/15/24 21:37> Constitutional: Constitutional: Reports no additional constitutional complaints <MD Abbi Garcia Last Filed: 04/15/24 21:37> Eyes: Eyes: Reports no additional eye complaints <MD Abbi Garcia Last Filed: 04/15/24 21:37> ENT: Reports system reviewed and no additional complaints, except as documented <Alexander Hull MD - Last Filed: 04/15/24 21:37> Cardiovascular: Cardiovascular: Reports no additional cardiovascular complaints <Alexander Hull MD - Last Filed: 04/15/24 21:37> Respiratory: Respiratory: Reports no additional respiratory complaints <Alexander Hull MD - Last Filed: 04/15/24 21:37> Gastrointestinal: Gastrointestinal: Reports as per HPI <Alexander Hull MD - Last Filed: 04/15/24 21:37> Musculoskeletal: Musculoskeletal: Reports no additional musculoskeletal complaints <Alexander Hull MD - Last Filed: 04/15/24 21:37> Neurologic: Reports system reviewed and no additional complaints, except as documented <Alexander Hull MD - Last Filed: 04/15/24 21:37> Psychiatric: Psychiatric: Reports no additional psychiatric complaints <Alexander Hull MD - Last Filed: 04/15/24 21:37> [facility] Past Medical History Medical History: Medical History (Updated 04/16/24 @ 00:00 by Sadia Rodriguez) No active medical problems <Alexander Hull MD - Last Filed: 04/15/24 21:37> Surgical History Surgical History: Surgical History (Updated 03/01/24 @ 12:35 by Shahram Yousif MD) Previous section <Alexander Hull MD - Last Filed: 04/15/24 21:37> Family History Family History: Family History Father Diabetes mellitus Mother Diabetes mellitus CHF (congestive heart failure) Grandparent Hypertension <Alexander Hull MD - Last Filed: 04/15/24 21:37> Social History Social History: Social History Smoking status: Former smoker Tobacco type: cigarettes Second hand tobacco smoke exposure: Yes (grandparent smokes) Substance use: never Do You Feel Safe in your Home?: Yes Lack of Transportation: No Lack of Food: Never True Current Housing: I Have Housing Concerned
[2024-04-15 20:15] VITALS: BP 125/76; PULSE 80; RESP 16; O2SAT 97
[2024-04-15] MEDS: SODIUM CHLORIDE 0.9% IV 1,000 ML 150 ML IV CONT (20:18)
[2024-04-15 20:25] LABS: Basophils Percent Auto 0.5 % (0.2-1.2); Eosinophils Absolute Auto 0.5 K/mm3 (0-0.3); Eosinophils Percent Auto 6.1 % (0-4.4); Hematocrit 36.4 % (37.0-47.0); Hemoglobin 12.6 g/dL (12.0-15.0); Immature Granulocyte Absolute 0.03 K/mm3 (0.00-0.031); Immature Granulocyte Percent A 0.4 % (0-0.5); Lymphocytes Absolute Auto 2.11 K/mm3 (0.9-3.2); Lymphocytes Percent Auto 24.7 % (18.3-44.2); Mean Corpuscular HGB Conc 34.6 g/dl (32-36); Mean Corpuscular Hemoglobin 30.7 pg (26-34); Mean Corpuscular Volume 88.8 fl (80-100); Mean Platelet Volume 9.6 fl (7.4-10.4); Monocytes Absolute Auto 0.6 K/mm3 (0.1-0.6); Monocytes Percent Auto 6.5 % (2.6-8.5); Neutrophils Absolute Auto 5.3 K/mm3 (1.3-6.7); Neutrophils Percent Auto 61.8 % (45.5-73.1); Platelet Count Result 255 k/mm3 (150-375); Red Cell Distribution Width 12.7 % (11.5-14.5); White Blood Count 8.6 K/mm3 (4.5-10.0)
[2024-04-15 20:37] LABS: Add Urine Microscopic? YES; Appearance Urine Clear (Clear); Bacteria Urine 1+ /hpf; Bilirubin Urine Negative (Negative); Blood Urine Negative (Negative); Color Urine Yellow (Yellow); Glucose Urine UA Negative (Negative); Ketones Urine Trace mg/dL (Negative); Leukocyte Esterase Ur 1+ LEU/UL (Negative); Nitrate Urine Negative (Negative); Non Pathogenic Casts 0-2; Protein Urine Negative (Negative); Squamous Epithelial Cell Urine Few /hpf (Few)
[2024-04-15 20:37] LABS: Alanine Aminotransferase 35 U/L (6-35); Albumin Level 4.3 g/dL (3.5-5.1); Alkaline Phosphatase 113 U/L (38-126); Anion Gap 12 mmol/L (4-12); Aspartate Amino Transferase 29 U/L (14-36); Bilirubin,Total 0.4 mg/dL (0.2-1.3); Blood Urea Nitrogen 18 mg/dL (7-17); Calcium 9.3 mg/dL (8.4-10.2); Carbon Dioxide 25 mmol/L (22-30); Chloride 101 mmol/L (98-107); Estimated CRCL calculation 133 ml/min; Estimated Glomerular Filt Rate > 60; Glucose 113 mg/dL (65-110); Lipase 91 U/L (23-300); Potassium 3.8 mmol/L (3.4-5.0); Sodium 138 mmol/L (137-145)
[2024-04-15 20:54] LABS: Beta HCG Quantitative < 2.39 mIU/ML
[2024-04-15] MEDS: ACETAMINOPHEN 500 MG TABLET 1000 MG PO (22:42)
[2024-04-15 22:44] VITALS: BP 143/76; PULSE 81; RESP 18; O2SAT 98
--- NOTE | 2024-04-15 23:07 | PC.NURSE ---
Report received from JACLYN Camacho. Assumed care of patient at this time.
[2024-04-15 23:10] VITALS: TEMP 36.6
[2024-04-15 23:16] VITALS: BP 134/99; PULSE 74; RESP 19; O2SAT 100
== END 2024-04-15 23:23 | disposition home or self-care (01) ==
PROVIDERS: Family Medicine; Emergency Provider Emergency Medicine; PCP Family Medicine
DX: R10.30 Lower abdominal pain, unspecified (principal); Z87.891 Personal history of nicotine dependence; K43.9 Ventral hernia without obstruction or gangrene
CPT/HCPCS: 36415; 74177; 80053; 81001; 83690; 84702; 85025; 87086; 87088; 96360; 96361; 99284; A9270; J7030; Q9967

== ENCOUNTER 2024-04-27 02:45 | Day surgery (SDC) | payer OTHER, SELFPAY ==
[2024-04-26 09:31] VITALS: BMI 50.3
--- NOTE | 2024-04-26 09:33 | PC.NURSE ---
Report to the Outpatient Waiting Room, entrance under the green pavilion located off [facility], at time _1130_ on date _[id number]_. Planned Procedure Time: _130pm_.? Time changes happen often and if your time is changed the preop area will call you the afternoon before. - You and your visitor will be asked to self-screen and do not enter if you have any COVID symptoms. Please call surgeon if you need to reschedule. - A mask is optional within the hospital at this time. Patients may have clear liquids (water, carbonated beverages, clear teas, apple juice) until 3 hours prior to surgery with a maximum of 20 ounces. - No food from midnight until time of surgery and no smoking Take only the following medications with a SIP of water on the morning of surgery: ___Tylenol if needed for pain. DO NOT STOP ANY OF YOUR OTHER PRESCRIPTION MEDICATIONS PRIOR TO SURGERY EXCEPT THE FOLLOWING Medications to discontinue per physician ____None Please no make-up, nail yoruba, hairspray, perfume, deodorant, or body powder the day of surgery.? No jewelry (including any body piercings) or valuables the day of surgery, leave them at home.? Please take a shower or bath the night before, or the morning of, surgery with an antibacterial soap.? Wear comfortable, loose fitting clothing.? - Jewelry must be removed prior to entering the operating room.? Rings and piercings that are not removed may be cut off. - The hospital will not accept responsibility for valuables.? - Please leave all valuables, including medications, at home the day of surgery. If you are going home after surgery, a licensed team driver must drive you home.? - NO public transportation without another adult if you receive anesthesia. - We recommend that an adult stay with you for 24 hours following discharge. - We also recommend that you do not drive, make important decision, drink alcoholic beverages, or take any drugs that were not prescribed by your health care provider for at least 24 hours after your discharge time. Follow any additional instructions given to you from your surgeon. Telephone instructions given to __Mariela___and asked if any additional questions and then verbalized understanding. Patient advised to call surgeon office or pre surgery nurse liaison [phone] if any additional questions.
[2024-04-27] VITALS (13 sets, daily range): BP systolic 115–145; BP diastolic 49–88; PULSE 63–87; RESP 10–17; TEMP 36.7–36.9; O2SAT 94–100; BMI 48.9
--- NOTE | 2024-04-27 09:27 | WPDHPUPDATE1 ---
History and Physical Update Update Date/Time: 04/27/24 09:27 History and Physical has been reviewed, including an updated exam of the patient. There are NO changes in the patient's condition. Risks, benefits, and alternatives have been discussed and questions answered. Patient agrees to proceed with procedure.
[2024-04-27] MEDS: ACETAMINOPHEN 500 MG TABLET 1000 MG PO (12:14)
[2024-04-27] MEDS: KETOROLAC 15 MG/ML VIAL (*BKC) IV PUSH (12:14)
--- NOTE | 2024-04-27 12:22 | WPDANESEPPF ---
Anes - Initial Pre Proc Eval Procedure: Operation Date: 04/27/24 13:30 Proposed Procedures p Robotic Laparoscopic Repair Incarcerated Incisional Hernia with Mesh - Fabricio Corado MD Date/Time: 04/27/24 12:22 Surgeon: Fabricio Corado MD Pre Op Diagnosis: Incarcerated Incisional Hernia Patient Data Age: 33 Gender: F Height: 1.73 m Weight: 145.9 kg Allergies Allergy/AdvReac Type Severity Reaction Status Date / Time No Known Allergies Allergy Verified 04/26/24 09:25 Home Medications Medication Instructions Recorded Confirmed Type acetaminophen 500 mg tablet 1,000 mg PO Q6H PRN Pain 04/26/24 04/26/24 History (Acetaminophen Extra Strength) Patient hx anesthesia problems: none Family hx anesthesia problems: none Results Review: All pre-operative results and documents have been reviewed as part of the pre-operative evaluation. [facility] Past Medical History Medical History Anxiety Surgical History Surgical History History of back surgery disk replacement 2012 Previous section x2 2023 Family History Family History Father Diabetes mellitus Mother Diabetes mellitus CHF (congestive heart failure) Grandparent Hypertension Social History Social History Smoking packs per day: 1 Smoking cigarettes per day: 20.0 Years smoked: 7 Smoking pack-years: 7.00 Smoking status: Former smoker Tobacco type: cigarettes Second hand tobacco smoke exposure: Yes (grandparent smokes) Smoking end date: 04/26/16 Substance use: never Do You Feel Safe in your Home?: Yes Lack of Transportation: No Lack of Food: Never True Current Housing: I Have Housing Concerned About Future Housing: No Difficulty Paying Gas/Electric Bills: No Difficulty Paying for Meds: No Currently Unemployed: No Education: Bachelor's Degree Difficulty w/ Childcare or Family Care: No Living arrangements: with family Spiritual care concerns: No Anes - Eval Final PreProcedure Day of Procedure 04/27/24 12:22 Patient weight: morbidly obese Heart: regular rate and rhythm Lungs: clear to auscultation Airway: Mallampati scale class II Neurological: alert and oriented Last oral intake: >/= 8 hours ASA classification: III Emergent: no Anesthetic plan: proceed Anesthesia type and monitoring: general ETT and standard monitoring Results Review: All pre-operative results and documents have been reviewed as part of the pre-operative evaluation. Informed Consent: The patient's anesthetic plan and its attendant risks and benefits were discussed with the patient/family/POA. Questions were solicited and answers provided to the satisfaction of the patient/family/POA.
[2024-04-27] MEDS: LACTATED RINGERS 1,000 ML 30 ML IV CONT ×3 (12:34→16:44)
[2024-04-27 12:36] LABS: BEDSIDEPREGUCG Negative (Negative)
[2024-04-27] MEDS: ceFAZolin 3 GM/D5W 100 ML 100 ML IVPB (12:48)
[2024-04-27] MEDS: BUPIVACAINE/EPINEPHRINE 0.5% 50 ML VIAL 25 ML INFILTRATE (13:36)
--- NOTE | 2024-04-27 15:47 | W.PM.PROC2 ---
Procedure Note - Detailed Date of Procedure 04/27/24 Pre-op Diagnosis Incarcerated Incisional Hernia with 4.5 cm defect Post-op Diagnosis Same Procedure Performed Robotic laparoscopic repair incarcerated incisional hernia 4.5 cm defect with Ventralight ST mesh Surgeon Fabricio Corado MD Occ Therapist Monae CANTU Anesthesia General and Local Indications Patient had a delivery on 02/22/2024. About 6 weeks after the delivery she noticed left lower quadrant pain and a bulge. CT scan showed an incisional hernia with nonobstructed bowel in the hernia defect. She continues to have constant pain. She is taken to surgery now for robotic laparoscopic repair of incarcerated incisional hernia Findings There was a gap between the right and left rectus muscles below the semicircular line. Posterior to the left rectus muscle was a 4.5 cm hernia defect. The incarcerated hernia contents reduced with anesthesia. The defect was repaired and the repair was reinforced with 10 x [address] mesh Description of Procedure Patient was taken to surgery and induced into general anesthesia. The abdomen is prepped and draped. Initial trocar was placed in the left upper abdomen using Showpitch optical trocar. Intraperitoneal location was attained and insufflation carried out. The area of the hernia was noted. I initially placed the 8 mm robotic port for the camera a bit too low. I had to removed the trocar and temporarily closed the wound with a 4-0 Vicryl. Under direct visualization the 8 mm robotic camera port was then placed just to the left of midline but more cephalad. We then placed the right-sided 8 mm robotic trocar. Under direct visualization the 5 mm port placed initially was then switched out for an 8 mm robotic port. Patient was placed in Trendelenburg. The camera was placed and docked. The robotic arms were then docked and instruments placed. The surgeon then went to the robotic console. Some limited dissection was undertaken wall the anatomy was analyzed. There was space between the 2 rectus muscles below the semicircular line. Initially, the 2 median umbilical ligaments looked like the edges of our hernia defect. While this area was still peritoneal eyes, further dissection showed that the actual hernia was in the anterior rectus fascia, as 1 would expect, but only in the area of the left rectus muscle. I removed properitoneal fat and dissected the associated left rectus muscle so that the hernia could be well delineated. I removed properitoneal fat so that the repair could be performed on the anterior rectus fascia and the underlay mesh would lie on the anterior rectus fascia. The defect measured 4.5 cm. It was more transverse which is reasonable considering the section incision. Once exposed, I used 0 Stratafix running suture to close the defect. I then brought into the field a 15 x [address] hernia mesh. With the Stratafix needle I was able to placed the strata fix through the center of the mesh. I brought the mesh up to the anterior abdominal wall an oriented it transversely to coincide with the direction of the hernia defect and closure. I then used some 3-0 Vicryl suture to fix the mesh to the anterior rectus fascia around the area of the repair. With mesh laying flat under the hernia closure, I then used 2 0 V lock running suture and circumferentially sutured the mesh to the anterior abdominal wall all around the repair. At each end, right and left lateral, there was a bit more mesh than there was abdominal wall. In this area, the mesh was sutured to the peritoneum and rectus muscle. At this point the repair looked good and the mesh was in good position. There was a flap of peritoneum that had been taken down to expose the hernia defect. Using 2 0 V lock again, I closed the flap so that the mesh would be beneath the peritoneum. All needles were retrieved. All looked good. We then removed th
[2024-04-27] MEDS: fentaNYL CITRATE INJ (*CRX) 100 MCG/2 ML VIAL 25 MCG IV PUSH ×5 (16:15→17:16)
[2024-04-27] MEDS: ONDANSETRON INJ 4 MG/2 ML VIAL IV PUSH ×2 (16:36→21:05)
[2024-04-27] MEDS: SCOPOLAMINE 1 MG PATCH 1 PATCH TRANSDERM (16:36)
[2024-04-27] MEDS: oxyCODONE HCL (*CRX) 5 MG TAB IR PO (17:22)
[2024-04-27] MEDS: HALOPERIDOL LACTATE 5 MG/ML VIAL 1 MG IV PUSH (17:50)
--- NOTE | 2024-04-27 18:14 | ADMGEN ---
This patient, Kenzie Chang, was admitted to Medical Room 244-. Patient/family oriented to hospital policies and general routines including ID bracelet, bed and alarms, visiting hours, pain management, procedures, bathroom and other care routines, personal items, smoking policy, room service/diet, and visiting hours. Information on how to activate the Rapid Response Team has been discussed. Patient/Family are encouraged to report perceived risks to care and to ask questions if they do not understand what they are told or what they should do.
[2024-04-27] MEDS: oxyCODONE/ACETAMINOPHEN (*CRX) 10-325 MG TABLET 1 TAB PO (18:38)
[2024-04-27] MEDS: LACTATED RINGERS 1,000 ML 100 ML IV CONT (18:39)
[2024-04-27] MEDS: IBUPROFEN IV 800 MG/200 ML 800 MG/200 ML BAG 400 MG IVPB (19:29)
[2024-04-27] MEDS: FAMOTIDINE 20 MG TABLET PO (19:30)
[2024-04-27] MEDS: SENNA/DOCUSATE SODIUM TABLET 2 TAB PO (20:51)
[2024-04-28 03:36] VITALS: BP 117/57; PULSE 66; RESP 17; TEMP 36.6; O2SAT 96
[2024-04-28] MEDS: IBUPROFEN IV 800 MG/200 ML 800 MG/200 ML BAG 400 MG IVPB (05:18)
[2024-04-28 05:42] LABS: Hematocrit 37.8 % (37.0-47.0); Hemoglobin 12.4 g/dL (12.0-15.0); Mean Corpuscular HGB Conc 32.8 g/dl (32-36); Mean Corpuscular Volume 91.3 fl (80-100); Mean Platelet Volume 9.8 fl (7.4-10.4); Platelet Count Result 304 k/mm3 (150-375); Red Blood Count 4.14 M/mm3 (4.2-5.4); Red Cell Distribution Width 12.9 % (11.5-14.5); White Blood Count 13.6 K/mm3 (4.5-10.0)
[2024-04-28 05:56] LABS: Anion Gap 9 mmol/L (4-12); Blood Urea Nitrogen 13 mg/dL (7-17); Calcium 8.8 mg/dL (8.4-10.2); Carbon Dioxide 26 mmol/L (22-30); Chloride 102 mmol/L (98-107); Estimated CRCL calculation 119 ml/min; Estimated Glomerular Filt Rate > 60; Glucose 116 mg/dL (65-110); Potassium 3.9 mmol/L (3.4-5.0); Sodium 137 mmol/L (137-145)
[2024-04-28] MEDS: FAMOTIDINE 20 MG TABLET PO (08:32)
[2024-04-28] MEDS: ENOXAPARIN 30 MG/0.3 ML SYRINGE SUB-Q (08:32)
[2024-04-28] MEDS: polyethylene glycoL 3350 17 GM POWD.PACK PO (08:32)
[2024-04-28 08:55] VITALS: BP 120/66; PULSE 69; RESP 16; TEMP 36.5; O2SAT 99
[2024-04-28] MEDS: oxyCODONE/ACETAMINOPHEN (*CRX) 10-325 MG TABLET 1 TAB PO (11:48)
[2024-04-28 14:42] VITALS: BP 121/60; PULSE 75; RESP 16; TEMP 36.3; O2SAT 98
[2024-04-28 18:05] VITALS: BP 111/60; PULSE 71; RESP 16; TEMP 36.6; O2SAT 98
--- NOTE | 2024-04-28 18:27 | PM.PNGS ---
Progress Note: A&P Assessment and Plan (1) Incarcerated incisional hernia: Code(s): K43.0 - Incisional hernia with obstruction, without gangrene Status: Acute Assessment and Plan: 4.5 cm (2) History of incisional hernia repair: Code(s): Z98.890 - Other specified postprocedural states; Z87.19 - Personal history of other diseases of the digestive system Status: Acute Assessment and Plan: patient doing well today. Pain is much better. Repair intact and no evidence of problems with incisions. She would like to go home today and I think that will be fine. Discharge instructions have been written. She will see me in about 2 weeks. Subjective Subjective Date/Time Seen: 04/28/24 18:27 Post Op day: 1 Patient reports: feels better, pain is less, tolerating a regular diet, voiding w/o difficulty, no bowel movement and afebrile Exam Const: General: comfortable, alert, awake and other ( fully dressed) GI: Inspection: non-distended, incision ( dry and healing), obesity and no visible herniation GI Palp: Yes Soft to palpation, Yes Tenderness to palpation present (GI) ( appropriate mild tenderness) and No Hernia present Objective Data Vital Signs Vital Signs: Vital Signs - 24 hr 04/27/24 18:56 04/27/24 18:46 04/27/24 19:46 Temperature 36.9 C Pulse Rate 72 63 Respiratory Rate 12 17 Blood Pressure 128/49 L 118/61 Pulse Oximetry 96 94 Oxygen Delivery Room Air 04/27/24 23:33 04/28/24 03:36 04/28/24 08:55 Temperature 36.7 C 36.6 C 36.5 C Pulse Rate 66 66 69 Respiratory Rate 17 17 16 Blood Pressure 117/62 117/57 L 120/66 Pulse Oximetry 95 96 99 Oxygen Delivery 04/28/24 14:42 04/28/24 18:05 Temperature 36.3 C L 36.6 C Pulse Rate 75 71 Respiratory Rate 16 16 Blood Pressure 121/60 111/60 Pulse Oximetry 98 98 Oxygen Delivery Intake/Output Intake/Output: Intake & Output 04/25/24 04/26/24 04/27/24 04/28/24 23:59 23:59 23:59 23:59 Intake Total 1800 1880 Output Total 600 1000 Balance 1200 880 Meds/Results Medications: Active Medications Generic Name Dose Route Start Last Admin Trade Name Freq PRN Reason Stop Dose Admin Acetaminophen 500 mg 04/27/24 18:01 Acetaminophen 500 Mg Tablet PO Q6H PRN Pain Rated 1-3 Enoxaparin Sodium 30 mg 04/28/24 09:00 04/28/24 08:32 Enoxaparin 30 Mg/0.3 Ml Syringe SUB-Q 30 mg DAILY IVY Administration Famotidine 20 mg 04/27/24 21:00 04/28/24 08:32 Famotidine 20 Mg Tablet PO 20 mg Q12HR IVY Administration Ibuprofen 800 mg in 200 mls @ 400 mls/hr 04/27/24 18:01 04/28/24 05:48 Caldolor 800 Mg/200 Ml IVPB Infused Q6H PRN Infusion Breakthrough Pain Rated 1-3 or NPO Morphine Sulfate 2 mg 04/27/24 18:01 Morphine Sulfate (*Crx) 2 Mg/Ml Inj IV PUSH Q2H PRN Breakthrough Pain Rated 4-6 or NPO Morphine Sulfate 4 mg 04/27/24 18:01 Morphine Sulfate (*Crx) 4 Mg/Ml Inj IV PUSH Q2H PRN Breakthrough Pain Rated 7-10 or NPO Naloxone HCl 0.1 mg 04/27/24 18:01 Naloxone Hcl 0.4 Mg/Ml Vial IV PUSH Q2M PRN Opiate Reversal Ondansetron HCl 4 mg 04/27/24 18:01 04/27/24 21:05 Ondansetron Inj 4 Mg/2 Ml Vial IV PUSH 4 mg Q4H PRN Administration Nausea And Vomiting Oxycodone/Acetaminophen 1 tablet 04/27/24 18:01 Oxycodone/Acetaminophen (*Crx) 5-325 Mg Tablet PO Q4H PRN Pain Rated 4-6 Oxycodone/Acetaminophen 1 tab 04/27/24 18:01 04/28/24 11:48 Oxycodone/Acetaminophen (*Crx) 10-325 Mg Tablet PO 1 tab Q6H PRN Administration Pain Rated 7-10 Polyethylene Glycol 17 gm 04/28/24 09:00 04/28/24 08:32 Polyethylene Glycol 3350 17 Gm Powd.Pack PO 17 gm QAM IVY Administration Senna/Docusate Sodium 2 tab 04/27/24 21:00 04/27/24 20:51 Senna/Docusate Sodium Tablet PO 2 tab HS IVY Administration Labs Labs: Laboratory Results - last 24 hr 04/28/24 04:58 WBC 13.6 H RBC
== END 2024-04-28 18:35 | disposition home or self-care (01) ==
LOC: ANHSURGERY 15:47 → ANH2MED 18:03
PROVIDERS: PCP Family Medicine; Visit Provider Surgery
PROC: (CPT 49594; principal; 2024-04-27 13:30)
DX: K43.0 Incisional hernia with obstruction, without gangrene (principal); Z87.891 Personal history of nicotine dependence; E66.01 Morbid (severe) obesity due to excess calories; Z68.42 Body mass index [BMI] 45.0-49.9, adult
CPT/HCPCS: 49594; S2900; 36415; 80048; 85027; 86850; 86900; 86901; A9270; C1781; J0690; J1100; J1170; J1200; J1630; J1650; J1741; J1885; J2250; J2371; J2405; J2704; J3010; J7120